=== PATIENT | female | born 1945 | race African-American/Black ===

== ENCOUNTER 2023-01-09 06:40 | Inpatient (IN) | payer OTHER, MEDICAID, BC ==
[~2023-01-09] VITALS: Ht 152.4 cm; Wt 40.4 kg
[2023-01-09 06:40] VITALS: BP 168/82
[~2023-01-09 06:40] MED LIST: ACET-2619 PO; ALUM355S5 PO; AZIT250T11 PO; CALC-1626 PO; CYAN-178 PO; DEXA6TAB1 PO; ESCI10TA PO; FERR325E14 PO; FOLI1TAB89 PO; LORA-476 PO; LOV60I SUBQ; MAGN400S60 PO; MEMA5TAB PO; MIRT-91 PO; MV-M1TAB9 PO; ROC2I IV; VITC500 PO; ZINC220C28 PO
--- NOTE | 2023-01-09 06:42 | NUR ---
Patient taken to bed 7.
--- NOTE | 2023-01-09 06:44 | NUR ---
Dr. Cope examining patient.
[2023-01-09] MEDS ORDERED: LIDOCAINE 1% 500 MG/ 50 ML VIAL INJ ONE (06:45)
[2023-01-09] MEDS ORDERED: BACITRACIN OINT 500 UNITS/GM PKT TP ONE (06:45)
[2023-01-09] MEDS ORDERED: LIDOCAINE MPF 1% 5 ML ONE (07:03)
--- NOTE | 2023-01-09 07:04 | NUR ---
Patient taken to CT scan via gurney.
--- NOTE | 2023-01-09 07:21 | NUR ---
Pt report given to Isabelle NINA. Transfer of care at this time.
--- NOTE | 2023-01-09 07:22 | NUR ---
Report recieved from KELLE Amor for transfer of care.
--- NOTE | 2023-01-09 07:29 | NUR ---
Lab at bedside
[2023-01-09 07:39] LABS: BASOPHILS % (AUTO) 0.3 % (0.0-2.0); EOSINOPHILS # (AUTO) 0.1 K/uL (0-0.4); EOSINOPHILS % (AUTO) 2.8 % (0.0-4.0); HEMATOCRIT 37.3 % (36-48); HEMOGLOBIN 12.3 g/dL (12.0-16.0); LYMPHOCYTES # (AUTO) 1.1 K/uL (2.5-16.5); LYMPHOCYTES % (AUTO) 22.2 % (20.5-51.1); MEAN CORPUSCULAR HEMOGLOBIN 34 pg (27-31); MEAN CORPUSCULAR HGB CONC 33 g/dL (33-37); MEAN CORPUSCULAR VOLUME 102.7 fL (80-94); MONOCYTES # (AUTO) 0.4 K/uL (0.8-1.0); MONOCYTES % (AUTO) 7.2 % (1.7-9.3); NEUTROPHILS # (AUTO) 3.3 K/uL (1.8-7.7); NEUTROPHILS % (AUTO) 67.5 % (42.2-75.2); PLATELET COUNT (AUTO) 175 K/uL (140-450); RED BLOOD CELL COUNT(AUTO) 3.64 MIL/uL (4.20-5.40); WHITE BLOOD COUNT (AUTO) 4.9 K/uL (4.8-10.8)
[2023-01-09 07:53] LABS: PROTHROMBIN TIME 9.4 secs (10.8-13.4)
[2023-01-09 08:25] LABS: ANION GAP 10.2 (8-16); CARBON DIOXIDE 30.7 mmol/L (21-32); CHLORIDE 109 mmol/L (98-107); POTASSIUM 3.9 mmol/L (3.5-5.1); SODIUM SERUM 146 mmol/L (136-145)
[2023-01-09 08:26] LABS: ASPARTATE AMINOTRANSFERASE 29 U/L (15-37); CREATININE 0.7 mg/dL (0.6-1.3); GLUCOSE 82 mg/dL (74-106); TOTAL BILIRUBIN 0.4 mg/dL (0.0-1.0); UREA NITROGEN, BLOOD 21 mg/dL (7-18)
--- NOTE | 2023-01-09 08:26 | NUR ---
# 8 FR Urinary catheter inserted utilizing sterile technique. Immediate return of 100 ml yellow urine noted. Urine sample collected and sent to lab. Pt tolerated procedure well.
[2023-01-09 08:27] LABS: ALBUMIN 3.7 g/dL (3.4-5.0)
[2023-01-09 08:42] LABS: BILIRUBIN,URINE NEGATIVE (NEGATIVE); BLOOD, URINE NEGATIVE (NEGATIVE); COLOR,URINE YELLOW (YELLOW); LEUKOCYTE ESTERASE ,URINE NEGATIVE (NEGATIVE); NITRITE, URINE NEGATIVE (NEGATIVE); UGLUCOSE NEGATIVE (NEGATIVE)
[2023-01-09 08:45] LABS: APPEARANCE,URINE HAZY (CLEAR)
[2023-01-09] MEDS ORDERED: NACL 0.9% 500 ML IV ONE (09:15)
[2023-01-09] MEDS ORDERED: FOLI1TAB90 PO (09:27)
[2023-01-09] MEDS ORDERED: ESCI10TA PO (09:27)
[2023-01-09] MEDS ORDERED: VITB12 PO (09:27)
[2023-01-09] MEDS ORDERED: [UNRECOGNIZED DRUG - CODE] PO (09:27)
[2023-01-09] MEDS ORDERED: MULT-2253 PO (09:27)
[2023-01-09] MEDS ORDERED: FERR-13 PO (09:27)
--- NOTE | 2023-01-09 09:27 | NUR ---
med rec complete
--- NOTE | 2023-01-09 10:10 | NUR ---
PT HAS POOR VEINS, UNABLE TO GET IV ACCESS IN BILAT ARMS. PER GORAN SOSA TO ATTEMPT IV ON FEET, 20G IV ACCESS OBTAINED TO LEFT MEDIAL ANKLE AREA.
[2023-01-09] MEDS ORDERED: HYDROcodone/APAP 5/325 MG 1 TAB TAB PO PRN ×2 (11:00)
[2023-01-09] MEDS ORDERED: ONDANSETRON 4 MG/2 ML VIAL IVP PRN (11:00)
--- NOTE | 2023-01-09 11:00 | NUR ---
RECEIVED PATIENT FROM ED
--- NOTE | 2023-01-09 11:02 | NUR ---
Patient will be admitted to care of DR. PAREDES. Admited to TELEMETRY. Will go to room 110-A. Belongings list completed. Report to VALORIE VENTURA.
[2023-01-09] MEDS ORDERED: RENAL DOSING PER PHARMACY MC PRN (11:15)
--- NOTE | 2023-01-09 12:07 | NUR ---
The patient's care was reviewed and supervised by Alva [facility] ED, RN.
--- NOTE | 2023-01-09 12:38 | NUR ---
WOUND CARE NOTE: PT. ADMITTED WITH A TRAUMA WOUND TO RIGHT EAR WITH SUTURES IN PLACE, NO S/S OF WOUND DEHISCENCE, MP-WOUND SKIN THIN, SWELLING WITH ERYTHEMA. PT. BMI 17.6, SKIN THIN TO BONE, COCCYX HEALING PRESSURE INJURY WITH UN-KNOW STAGING. TODAY'S ASSESSMENT 0.8X1X0.1CM PARTIAL THICKNESS SKIN LOSS, WOUND BED PINK, MOIST, NO ODOR, MP-WOUND SKIN HEALED SCAR TISSUE WITH HYPERPIGMENTATION. LOWER LUMBAR AREA WITH MULTIPLE HEALED SCARS, MP- WOUND SKIN THIN TO BONE. FOAM DRESSING APPLIED. POC DISCUSSED WITH PRIMARY RN AUDREY. PT. WITH LOW ELSA SCALE AT HIGH RISK, CONTINUE TO FOLLOW PRESSURE INJURY PREVENTION INTERVENTIONS. RECOMMENDATIONS: -PAINT RIGHT EAR SUTURES WITH BETADINE SWAP STICK DAILY AND COVER WITH DRY DRESSING PREVENT PT. TO TOUCH / REMOVE THE SUTURES -GOOD MP-CARE Q2H. APPLY Z GUARD TO SACRALCOCCYX AND LOWER LUMBAR,COVER AREAS WITH FOAM DRESSING QD AND PRN IF SOILING -APPLY FOAM DRESSING TO SCAPULARS, ELBOWS, KNEES AND HEELS Q3D AND PRN IF SOILING -POSITIONING: TURN AND REPOSITION PATIENT Q 2H OR SOONER USE PILLOWS TO KEEP BONY PROMINENCES FROM DIRECT CONTACT WITH SURFACES USE REPOSITIONING WEDGES TO PROVIDE 30-DEGREE ANGLE FOR SIDE LYING POSITIONS OFFLOADING OR FOAM DRESSING TO ALL TUBING TO PREVENT MEDICAL DEVICES RELATED PRESSURE INJURY -RE-EVALUATING AND MANAGING INCONTINENCE MONITOR SKIN CONDITION DURING POSITION CHANGE DO NOT MASSAGE REDNESS, BONY PROMINENCES FREQUENT MP-CARE AND PROVIDE BARRIER CREAMS PRN IF SOILING MOISTURE CONTROL BY OFFER BED EASTON/URINAL /ABSORBENT PAD TO WICK AND HOLD MOISTURE KEEP SKIN DRY AND PROTECT FROM FRICTION -MANAGE FRICTION/SHEAR/MOBILITY KEEP HOB AT THE LOWEST LEVEL OF ELEVATION NO MORE THAN 30 DEGREE UNLESS OTHERWISE CONTRAINDICATED USE LIFT SHEET OR TRANSFER DEVICE TO MOVE PATIENT AND PREVENT LATERAL SHEER. PROTECT HEELS, ELBOWS BONY PROMINENCES WITH SKIN BERRIES OR FOAM DRESSING IF EXPOSED TO FRICTION OFFLOAD BILATERAL HEELS BY PLACING PILLOWS UNDER CALVES AT ALL TIMES, UNLESS OTHERWISE CONTRAINDICATED -PRESSURE REDISTRIBUTION SURFACE THERAPY ATILIO ISOFLEX MATTRESS -NUTRITION: PLEASE FOLLOW RD RECOMMENDATIONS AND OFFER NUTRITION SUPPLEMENTS IF ORDERED. PLEASE CONTACT WOUND CARE NURSE FOR ANY QUESTION AND CHANGE OF WOUND CONDITION.
--- NOTE | 2023-01-09 12:54 | NUR ---
PATIENT HAS BEEN SCREENED AND CATEGORIZED HIGH NUTRITION RISK. PATIENT WILL BE SEEN WITHIN 1-2 DAYS OF ADMISSION. FNS CONSULT FOR WOUNDS RECEIVED ON 01/09/23 01/10/23-01/11/[address]
[2023-01-09] MEDS: GAUZE TP SCH (13:00)
[2023-01-09] MEDS: Z-GUARD PASTE TP SCH (13:00)
--- NOTE | 2023-01-09 13:00 | NUR ---
PATIENT EATS BLANKETS. REPOSITIONED PROPERLY BACK ON BED.
--- NOTE | 2023-01-09 16:00 | NUR ---
01/09/23 RD INITIAL ASSESSMENT COMPLETED PLEASE REFER TO NUTRITION ASSESSMENT UNDER CARE ACTIVITY FOR ESTIMATED NUTRITIONAL NEEDS. 1. CONTINUE CARDIAC DIET TOLERATED 2. RD RECOMMENDS PRSOURCE BID FOR WOUNDS WHICH PROVIDES 120 CALORIES AND 30 GRAMS OF PROTEIN. 3. RD RECOMMENDS ENSURE TID FOR EXTRA CALORIES AND PROTEIN DUE TO LOW WEIGHT, THIS WILL PROVIDE 1050 CALORIES AND 60 GRAMS OF PROTEIN. 4. RD TO FOLLOW-UP 2-3 DAYS, HIGH RISK JACOB VALLEJO RD
--- NOTE | 2023-01-09 19:04 | NUR ---
RECEIVED REPORT FROM DAY SHIFT NURSE FOR CONTINUITY OF CARE. PT IS AWAKE IN BED, ALERT AND ORIENTED X0-1, AROUSABLE TO NAME AND SHAKING. NON VERBAL ON ROOM AIR WITH NO APPARENT SIGNS OF ACUTE DISTRESS NOTED. IV SITE LOCATED AT LEFT ANKLE, 20 GAUGE. INTACT. PT HAS MULTIPLE CLOSED/HEALED WOUNDS ON BACK AND SACRAL AREA, AND A LACERATION TO RIGHT EAR. UPDATED WHITE BOARD, PLACED CALL LIGHT WITHIN REACH, SAFETY MEASURES IN PLACE.
--- NOTE | 2023-01-09 19:10 | NUR ---
ENDORSED PATIENT TO PM NURSE FOR CONTINUITY OF CARE. PATIENT SEEN ON BED STABLE.
[2023-01-09 20:00] VITALS: BP 135/75
--- NOTE | 2023-01-09 20:00 | NUR ---
Patient's Plan of Care was discussed and reviewed with KELLE: SESAR
[2023-01-09] MEDS: MIRTAZAPINE 15 MG TAB PO SCH (20:24)
--- NOTE | 2023-01-09 20:30 | NUR ---
SCHEDULED MEDICATIONS ADMINISTERED. PT TOLERATED WELL, WILL CONTINUE MONITORING THE PATIENT.
--- NOTE | 2023-01-09 22:09 | NUR ---
PT HAD BM. CLEAN AND CHANGED THE PT. BM CONSISTENCY WAS VERY FORMED, HARD, AND BLACK.
[2023-01-10] VITALS: BP 120/54
--- NOTE | 2023-01-10 00:51 | NUR ---
PT SLEEPING COMFORTABLY. RESPIRATIONS EVEN AND UNLABORED. CHEST RISE AND FALL NOTED. FLACC SCORE- 0. WOUND DRESSING STILL DRY AND INTACT.
[2023-01-10 04:00] VITALS: BP 147/70
--- NOTE | 2023-01-10 04:50 | NUR ---
PT AWAKE AT THIS TIME, SLEPT WELL THROUGHOUT SHIFT. VOIDED TWICE AND HAD ONE BOWEL MOVEMENT. WHEN CLEANING AND CHANGING THE PATIENT THIS MORNING SHE BECAME VERY COMBATIVE, CURSING, KICKING AND PUNCHING.
--- NOTE | 2023-01-10 05:37 | NUR ---
CLEANED AND APPLIED NEW DRESSING TO PATIENTS EAR. PT IS STABLE AT THIS TIME, WILL ENDORSE TO DAY SHIFT NURSE FOR CONTINUITY OF CARE.
[2023-01-10 07:03] LABS: ANION GAP 9.3 (8-16); CARBON DIOXIDE 30.6 mmol/L (21-32); CHLORIDE 107 mmol/L (98-107); CREATININE 0.7 mg/dL (0.6-1.3); GLUCOSE 75 mg/dL (74-106); POTASSIUM 3.9 mmol/L (3.5-5.1); SODIUM SERUM 143 mmol/L (136-145); UREA NITROGEN, BLOOD 21 mg/dL (7-18)
--- NOTE | 2023-01-10 07:10 | NUR ---
RECEIVED PATIENT FROM NURSE FOR CONTINUITY OF CARE
[2023-01-10 07:46] LABS: BASOPHILS % (AUTO) 0.5 % (0.0-2.0); EOSINOPHILS # (AUTO) 0.1 K/uL (0-0.4); EOSINOPHILS % (AUTO) 2.8 % (0.0-4.0); HEMATOCRIT 34.3 % (36-48); HEMOGLOBIN 11.2 g/dL (12.0-16.0); LYMPHOCYTES # (AUTO) 1.2 K/uL (2.5-16.5); LYMPHOCYTES % (AUTO) 24.5 % (20.5-51.1); MEAN CORPUSCULAR HEMOGLOBIN 33 pg (27-31); MEAN CORPUSCULAR HGB CONC 33 g/dL (33-37); MONOCYTES # (AUTO) 0.4 K/uL (0.8-1.0); NEUTROPHILS # (AUTO) 3.2 K/uL (1.8-7.7); NEUTROPHILS % (AUTO) 64.2 % (42.2-75.2); PLATELET COUNT (AUTO) 169 K/uL (140-450); RED BLOOD CELL COUNT(AUTO) 3.36 MIL/uL (4.20-5.40); RED CELL DISTRIBUTION WIDTH 14.6 % (11.6-13.7)
[2023-01-10 08:00] VITALS: BP 132/63
[2023-01-10] MEDS: MEMANTINE 10 MG TAB PO SCH (09:00)
[2023-01-10] MEDS: ESCITALOPRAM 20 MG TAB PO SCH (09:00)
[2023-01-10] MEDS: ENOXAPARIN 40 MG/0.4 ML SYR SUBQ SCH (09:00)
[2023-01-10 12:00] VITALS: BP 132/63
[2023-01-10] MEDS: Z-GUARD PASTE TP SCH (13:00)
[2023-01-10] MEDS: GAUZE TP SCH (13:00)
[2023-01-10 16:00] VITALS: BP 106/76
--- NOTE | 2023-01-10 19:20 | NUR ---
ENDORSED TO PM NURSE FOR CONTINUITY OF CARE
--- NOTE | 2023-01-10 19:21 | NUR ---
RECEIVED PT FROM MORNING SHIFT NURSE. PT IS AOX1 AND BEDBOUND. PT IS ON CARDIAC DIET AND ON ROOM AIR. PT HAS IV ON LEFT ANKLE GAUGE 20 SALINE LOCK. PT HAS SUTURE ON RIGHT FRONT EAR AND WOUND ON RIGHT BACK EAR. NO S/S OF PAIN AT THIS TIME. NO S/S OF RESPIRATORY DISTRESS NOTED. ALL SAFETY MEASURES IMPLEMENTED. BED IN LOW POSITION, BED WHEELS ON LOCK AND CALL LIGHT WITHIN REACH.
[2023-01-10 20:00] VITALS: BP 108/60
[2023-01-10] MEDS: MIRTAZAPINE 15 MG TAB PO SCH (21:05)
--- NOTE | 2023-01-10 21:05 | NUR ---
SCHEDULED AND PRESCRIBE DMEDICATION WAS GIVEN TO PT PER MD ORDER. ALL SAFETY MEASURES IMPLEMENTED. BED IN LOW POSITION, BED WHEELS ON LOCK AND CALL LIGHT WITHIN REACH.
--- NOTE | 2023-01-10 22:00 | NUR ---
FEED THE PT. WARM BLANKET WAS ALSO GIVEN TO PT. NO S/S OF RESPIRATORY DISTRESS NOTED. ALL SAFETY MEASURES IMPLEMENTED. BED IN LOW POSITION, BED WHEELS ON LOCK AND CALL LIGHT WITHIN REACH.
--- NOTE | 2023-01-11 | NUR ---
PT IS ON SLEEP. CHEST RISE AND FALL SYMMETRICALLY NOTED. RESPIRATION IS EVEN AND UNLABORED. ALL SAFETY MEASURES IMPLEMENTED. BED IN LOW POSITION, BED WHEELS ON LOCK AND CALL LIGHT WITHIN REACH.
--- NOTE | 2023-01-11 02:00 | NUR ---
CHECKED THE PT STILL ON SLEEP. CHEST RISE AND FALL SYMMETRICALLY NOTED. RESPIRATION IS EVEN AND UNLABORED. ALL SAFETY MEASURES IMPLEMENTED. BED IN LOW POSITION, BED WHEELS ON LOCK AND CALL LIGHT WITHIN REACH.
--- NOTE | 2023-01-11 04:00 | NUR ---
MORNING CARE WAS DONE TO PT. CHANGED THE LINENS, GOWN, DIAPER AND BLANKET. NO S/S OF RESPIRATORY DISTRESS NOTED. ALL SAFETY MEASURES IMPLEMENTED. BED IN LOW POSITION, BED WHEELS ON LOCK AND CALL LIGHT WITHIN REACH.
[2023-01-11 06:54] LABS: BASOPHILS % (AUTO) 0.5 % (0.0-2.0); EOSINOPHILS # (AUTO) 0.1 K/uL (0-0.4); HEMOGLOBIN 10.8 g/dL (12.0-16.0); LYMPHOCYTES # (AUTO) 1.2 K/uL (2.5-16.5); LYMPHOCYTES % (AUTO) 26.3 % (20.5-51.1); MEAN CORPUSCULAR HEMOGLOBIN 34 pg (27-31); MEAN CORPUSCULAR HGB CONC 34 g/dL (33-37); MEAN CORPUSCULAR VOLUME 101.2 fL (80-94); MONOCYTES # (AUTO) 0.4 K/uL (0.8-1.0); MONOCYTES % (AUTO) 9.5 % (1.7-9.3); NEUTROPHILS # (AUTO) 2.8 K/uL (1.8-7.7); NEUTROPHILS % (AUTO) 60.7 % (42.2-75.2); PLATELET COUNT (AUTO) 168 K/uL (140-450); RED BLOOD CELL COUNT(AUTO) 3.17 MIL/uL (4.20-5.40); RED CELL DISTRIBUTION WIDTH 14.4 % (11.6-13.7); WHITE BLOOD COUNT (AUTO) 4.6 K/uL (4.8-10.8)
[2023-01-11 06:57] LABS: ANION GAP 9.4 (8-16); CARBON DIOXIDE 29.7 mmol/L (21-32); CHLORIDE 106 mmol/L (98-107); CREATININE 0.7 mg/dL (0.6-1.3); GLUCOSE 85 mg/dL (74-106); POTASSIUM 4.1 mmol/L (3.5-5.1); SODIUM SERUM 141 mmol/L (136-145); UREA NITROGEN, BLOOD 35 mg/dL (7-18)
--- NOTE | 2023-01-11 07:31 | NUR ---
PT IS STABLE. ENDORSED PT TO MORNING SHIFT NURSE FOR CONTINUITY OF CARE.
--- NOTE | 2023-01-11 07:32 | NUR ---
RECEIVED PT FROM DRYWALL APPLICATOR NURSE FOR CONTINUITY OF CARE, PT IS STABLE, NO SIGNS OF DISTRESS. WILL CONTINUE WITH POC. MNURUM
[2023-01-11 08:00] VITALS: BP 98/54
[2023-01-11] MEDS: MEMANTINE 10 MG TAB PO SCH (08:21)
[2023-01-11] MEDS: ESCITALOPRAM 20 MG TAB PO SCH (08:21)
[2023-01-11] MEDS: ENOXAPARIN 40 MG/0.4 ML SYR SUBQ SCH (08:25)
== END 2023-01-11 13:15 | DRG 156 ==
LOC: MED 06:40 → MTU 11:02
PROVIDERS: ADMIT Internal Medicine; ATTEND Internal Medicine
PROC: 09Q0XZZ Repair Right External Ear, External Approach (ICD-10-PCS; principal; 2023-01-09)
DX: S01.311A Laceration without foreign body of right ear, initial encounter (principal); R00.1 Bradycardia, unspecified; F03.90 Unspecified dementia, unspecified severity, without behavioral disturbance, psychotic disturbance, mood disturbance, and anxiety; J45.909 Unspecified asthma, uncomplicated; Z20.822 Contact with and (suspected) exposure to COVID-19; W18.39XA Other fall on same level, initial encounter; Z88.0 Allergy status to penicillin; Z91.041 Radiographic dye allergy status; Z79.899 Other long term (current) drug therapy; Y93.89 Activity, other specified; Y92.89 Other specified places as the place of occurrence of the external cause; Y99.8 Other external cause status
CPT/HCPCS: 36415; 70450; 71045; 72125; 80048; 80053; 81003; 83735; 84443; 84484; 85025; 85610; 85730; 87081; 87086; 96360; 99285; J1650; J2001